=== PATIENT | female | born 1965 | race Caucasian/White ===

== ENCOUNTER 2016-11-23 23:41 | Outpatient (CLI) | payer SELFPAY | END 2016-11-23 23:42 | disposition EMS.NT | LOC: EMS 23:41 | PROVIDERS: ATTEND Surgery | DX: Z04.1 Encounter for examination and observation following transport accident (principal); V48.0XXA Car driver injured in noncollision transport accident in nontraffic accident, initial encounter; Y92.410 Unspecified street and highway as the place of occurrence of the external cause ==

== ENCOUNTER 2018-05-24 20:11 | Emergency (ER) | payer BC ==
[2018-05-24 20:51] LABS: BASOPHILS # (AUTO) 0.1 10^3/uL (0.0-0.1); BASOPHILS % (AUTO) 0.8 %; EOSINOPHILS # (AUTO) 0.2 10^3/uL (0.0-0.7); EOSINOPHILS % (AUTO) 3.6 %; HGB - HEMOGLOBIN 12.8 g/dL (12.0-16.0); LYMPHOCYTES # (AUTO) 2.4 10^3/uL (1.5-3.5); MEAN CORPUSCULAR HEMOGLOBIN 31.6 pg (27.0-31.0); MEAN CORPUSCULAR HGB CONC 33.4 g/dL (32.0-36.0); MEAN CORPUSCULAR VOLUME 94.8 fL (81.0-99.0); MEAN PLATELET VOLUME 8.2 fL (7.9-10.8); MONOCYTES # (AUTO) 0.4 10^3/uL (0.0-1.0); MONOCYTES % (AUTO) 6.7 %; NEUTROPHILS % (AUTO) 48.9 %; PLT - PLATELET COUNT 324 10^3/uL (130-450); RED BLOOD COUNT 4.04 10^6/uL (4.20-5.40); RED CELL DISTRIBUTION WIDTH 12.6 % (12.0-15.0); WHITE BLOOD COUNT 6.1 x10^3/uL (4.8-10.8)
--- NOTE | 2018-05-24 20:55 | XRAY Report ---
Reason: Chest Pain Procedure Date: 05/24/2018 Accession Number: [id number] / [id number] Procedure: XR - Chest 1 View X-Ray CPT Code: 37283 FULL RESULT: EXAM: CHEST RADIOGRAPHY EXAM DATE: 05/24/2018 08:40 PM. CLINICAL HISTORY: Left-sided chest pain for 3 days. COMPARISON: None. TECHNIQUE: 1 view. FINDINGS: Lungs/Pleura: No focal opacities evident. No pleural effusion. No pneumothorax. Mediastinum: Within exam limitations, the cardiomediastinal contour is normal. Other: None. IMPRESSION: Normal single view chest. RADIA
--- NOTE | 2018-05-24 20:57 | ED Physician Documentation ---
PD HPI URI - Stated complaint Stated Complaint: CHEST PX - Chief complaint Chief Complaint: Cardiac - History obtained from History obtained from: Patient - History of Present Illness Timing - onset: How many weeks ago (2) Timing duration: Weeks (2) Timing details: Gradual onset Pain level max: 5 Pain level now: 4 Associated symptoms: Nasal congestion, Rhinorrhea, Dry cough, Chest pain (Left- sided chest pain for the past 2 days). 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) Improves by: Rest Worsened by: Activity, Breathing, Other (Palpation) Recently seen: Not recently seen Review of Systems Constitutional: denies: Fever, Chills Throat: denies: Sore throat Cardiac: denies: Palpitations Respiratory: reports: Cough GI: denies: Vomiting, Diarrhea Skin: denies: Rash Musculoskeletal: denies: Neck pain, Back pain Neurologic: denies: Headache PD PAST MEDICAL HISTORY - Past Medical History Past Medical History: Yes Psych: Anxiety - Past Surgical History Past Surgical History: No - Present Medications Home Medications: Ambulatory Orders Medication Instructions Recorded Confirmed Benzonatate [Tessalon Perle] 100 - 200 mg PO TID PRN #30 capsule 05/24/18 Meloxicam [Mobic] 7.5 mg PO BID PRN #20 tablet 05/24/18 Sertraline HCl 1 tab PO DAILY 05/24/18 05/24/18 - Allergies Allergies/Adverse Reactions: Allergies Allergy/AdvReac Type Severity Reaction Status Date / Time No Known Drug Allergies Allergy Verified 05/24/18 20:23 - Social History Does the pt smoke?: No Smoking Status: Never smoker Does the pt drink ETOH?: No Does the pt have substance abuse?: No - Immunizations Immunizations are current?: Yes - POLST Patient has POLST: No PD ED PE NORMAL - Vitals Vital signs reviewed: Yes - General General: Alert and oriented X 3, No acute distress - HEENT HEENT: Moist mucous membranes - Neck Neck: Supple, no meningeal sign - Cardiac Cardiac: RRR, Strong equal pulses - Respiratory Respiratory: No respiratory distress, Clear bilaterally - Abdomen Abdomen: Soft, Non tender, Non distended - Derm Derm: Warm and dry - Extremities Extremities: No edema - Neuro Neuro: Alert and oriented X 3 - Free text exam Free text exam: Tender to palpation across the anterior left chest wall, reproduces her pain Results - Vitals Vitals: Vital Signs - 24 hr 05/24/18 05/24/18 05/24/18 20:15 20:55 21:40 Temperature 36.2 C L 36.5 C Heart Rate 57 L 65 63 Respiratory 18 18 19 Rate Blood Pressure 137/94 H 117/107 H 134/92 H O2 Saturation 100 99 100 Oxygen O2 Source Room air - EKG (time done) 2020 Rate: Rate (enter#) (60) Rhythm: NSR Victor: Normal Intervals: Normal NE QRS: Normal Ischemia: Normal ST segments - Labs Labs: Laboratory Tests 05/24/18 05/24/18 05/24/18 20:42 20:42 20:42 WBC 6.1 RBC 4.04 L Hgb 12.8 Hct 38.3 MCV 94.8 MCH 31.6 H MCHC 33.4 RDW 12.6 Plt Count 324 MPV 8.2 Neut # (Auto) 3.0 Lymph # (Auto) 2.4 [place] # (Auto) 0.4 Eos # (Auto) 0.2 Baso # (Auto) 0.1 Absolute Nucleated RBC 0.00 Nucleated RBC % 0.0 Sodium 138 Potassium 4.1 Chloride 101 Carbon Dioxide 29 Anion Gap 8.0 BUN 15 Creatinine 0.8 Estimated GFR (MDRD) 75 L Glucose 139 H Calcium 9.8 Total Bilirubin 0.6 AST 21 ALT 17 Alkaline Phosphatase 88 Troponin I < 0.04 Total Protein 7.4 Albumin 4.4 Globulin 3.0 Albumin/Globulin Ratio 1.5 Lipase 28 - Rads (name of study) cxr Radiology: Prelim report reviewed, EMP read contemporaneously, See rad report (normal) PD MEDICAL DECISION MAKING - ED course Complexity details: reviewed results, re-evaluated patient, considered differential (No ST elevation SC, no aortic dissection, no PE, no tension p neumothorax, no aortic aneurysm), d/w patient ED course: Patient is a 53-year-old female who presents to the emergency department with atypical chest pain. Appears related to her viral URI. No pneumonia. No hypoxia. No acute coronary syndrome. We will trial on pain medication for home and follow-up with her doctor. Patient counseled regarding signs and symptoms for which I believe and urgent re-evaluation would be necessary. Patient with good understanding of and agreement to plan and is comfortable going home at this time This document was made in part using voice recognition software. While efforts are made to proofread this document, sound alike and grammatical errors may occur. Departure - Departure Disposition: 01 Home, Self Care Clinical Impression: URI, acute Chest pain Qualifiers: Chest pain type: unspecified Qualified Code(s): R07.9 - Chest pain, unspecified Condition: Good Instructions: ED Chest Pain Costochondritis, ED URI Viral Follow-Up: your,doctor in 1 week if not better [Other] Prescriptions: Benzonatate [Tessalon Perle] 100 - 200 mg PO TID PRN #30 capsule PRN Reason: Cough Meloxicam [Mobic] 7.5 mg PO BID PRN #20 tablet PRN Reason: Pain Comments: Your x-ray does not show any evidence of pneumonia today. With your white blood cell count is also normal. Your heart tests are normal. This should improve over the next week. Return if you worsen Discharge Date/Time: 05/24/18 21:41
[2018-05-24 21:06] LABS: ALBUMIN 4.4 g/dL (3.2-5.5); ALBUMIN/GLOBULIN RATIO 1.5 (1.0-2.2); BILIRUBIN,TOTAL 0.6 mg/dL (0.2-1.0); CALCIUM 9.8 mg/dL (8.5-10.3); CREATININE 0.8 mg/dL (0.4-1.0); TOTAL PROTEIN 7.4 g/dL (6.7-8.2)
[2018-05-24] MEDS ORDERED: MELOXICAM 7.5 MG TABLET PO STA (21:34)
[2018-05-24 21:41] VITALS: BP 134/92
== END 2018-05-24 21:41 | disposition home or self-care (01) ==
LOC: ED 20:11
DX: J06.9 Acute upper respiratory infection, unspecified (principal)
CPT/HCPCS: 36415; 71045; 80053; 83690; 84484; 85025; 93005; 99283; 99284; A9270

== ENCOUNTER 2022-03-23 12:11 | Outpatient (CLI) | payer BC | END 2022-03-23 12:12 | disposition critical access hospital (66) | LOC: EMS 12:11 | DX: R45.89 Other symptoms and signs involving emotional state (principal); R45.1 Restlessness and agitation; F41.9 Anxiety disorder, unspecified | CPT/HCPCS: A0425; A0429 ==

== ENCOUNTER 2022-03-23 12:34 | Emergency (ER) | payer BC ==
--- NOTE | 2022-03-23 12:46 | ED Physician Documentation ---
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 She was taking her usual medications on the way to work which included Wellbutrin and sertraline at the normal doses. That says she might of gotten some of her 's medications and with that, she does not know exactly what her takes. When she was at work she states that work became "really fun, work is always fun but it was even more fun than normal." Then she started to have an out of body experience. She still feels odd but is improving. Review of Systems Ten Systems: 10 systems reviewed and negative Nose: reports: Reviewed and negative Throat: reports: Reviewed and negative Cardiac: reports: Reviewed and negative Respiratory: reports: Reviewed and negative PD PAST MEDICAL HISTORY - Past Medical History Psych: Anxiety - Past Surgical History Past Surgical History: No - Present Medications Home Medications: Ambulatory Orders Medication Instructions Recorded Confirmed Sertraline HCl 100 mg PO DAILY 05/24/18 03/23/22 buPROPion HCL [Bupropion HCl Sr] 100 mg PO DAILY 03/23/22 03/23/22 - Allergies Allergies/Adverse Reactions: Allergies Allergy/AdvReac Type Severity Reaction Status Date / Time No Known Drug Allergies Allergy Verified 05/24/18 20:23 - Social History Does the pt smoke?: No Smoking Status: Never smoker Does the pt drink ETOH?: No Does the pt have substance abuse?: No - Immunizations Immunizations are current?: Yes - POLST Patient has POLST: No PD ED PE NORMAL - Vitals Vital signs reviewed: Yes - General General: Alert and oriented X 3, Other (Slightly pressured speech but alert and oriented and cooperative) - HEENT HEENT: PERRL, EOMI - Neck Neck: Supple, no meningeal sign, No bony TTP - Cardiac Cardiac: RRR, No murmur - Respiratory Respiratory: No respiratory distress, Clear bilaterally - Abdomen Abdomen: Non tender - Back Back: No CVA TTP, No spinal TTP - Derm Derm: Normal color, Warm and dry - Extremities Extremities: No edema, No calf tenderness / cord - Neuro Neuro: Alert and oriented X 3, Normal speech Results - Vitals Vitals: Vital Signs - 24 hr 03/23/22 12:51 Temperature 37.0 C Heart Rate 101 H Respiratory 17 Rate Blood Pressure 151/85 H O2 Saturation 99 Oxygen O2 Source Room air - Labs Labs: Laboratory Tests 03/23/22 03/23/22 03/23/22 13:00 13:00 13:00 WBC 5.4 RBC 4.17 L Hgb 13.3 Hct 39.2 MCV 94.0 MCH 31.9 H MCHC 33.9 RDW 12.5 Plt Count 284 MPV 10.0 Neut # (Auto) 3.1 Lymph # (Auto) 1.8 [place] # (Auto) 0.5 Eos # (Auto) 0.1 Baso # (Auto) 0.0 Absolute Nucleated RBC 0.00 Nucleated RBC % 0.0 Sodium 137 Potassium 4.2 Chloride 101 Carbon Dioxide 24 Anion Gap 12.0 BUN 13 Creatinine 0.9 Estimated GFR (MDRD) 65 L Glucose 126 H Calcium 9.8 Total Bilirubin 0.6 AST 20 ALT 15 Alkaline Phosphatase 70 Total Protein 7.3 Albumin 4.7 Globulin 2.6 Albumin/Globulin Ratio 1.8 Lipase 37 TSH 1.84 Urine Color Urine Clarity Urine pH Ur Specific [place] Urine Protein Urine Glucose (UA) Urine Ketones Urine Occult Blood Urine Nitrite Urine Bilirubin Urine Urobilinogen Ur Leukocyte Esterase Ur Microscopic Review Urine Culture Comments Salicylates < 6.0 Urine Opiates Screen Ur Oxycodone Screen Urine Methadone Screen Ur Propoxyphene Screen Acetaminophen < 10 L Ur Barbiturates Screen Ur Tricyclics Screen Ur Phencyclidine Scrn Ur Amphetamine Screen U Methamphetamines Scrn U Benzodiazepines Scrn Urine Cocaine Screen U Cannabinoids Screen Ethyl Alcohol < 5.0 03/23/22 13:32 WBC RBC Hgb Hct MCV MCH MCHC RDW Plt Count MPV Neut # (Auto) Lymph # (Auto) [place] # (Auto) Eos # (Auto) Baso # (Auto) Absolute Nucleated RBC Nucleated RBC % Sodium Potassium Chloride Carbon Dioxide Anion Gap BUN Creatinine Estimated GFR (MDRD) Glucose Calcium Total Bilirubin AST ALT Alkaline Phosphatase Total Protein Albumin Globulin Albumin/Globulin Ratio Lipase TSH Urine Color YELLOW Urine Clarity CLEAR Urine pH 7.5 Ur Specific [place] 1.015 Urine Protein NEGATIVE Urine Glucose (UA) NEGATIVE Urine Ketones NEGATIVE Urine Occult Blood NEGATIVE Urine Nitrite NEGATIVE Urine Bilirubin NEGATIVE Urine Urobilinogen 0.2 (NORMAL) Ur Leukocyte Esterase NEGATIVE Ur Microscopic Review NOT INDICATED Urine Culture Comments NOT INDICATED Salicylates Urine Opiates Screen NEGATIVE Ur Oxycodone Screen NEGATIVE Urine Methadone Screen NEGATIVE Ur Propoxyphene Screen NEGATIVE Acetaminophen Ur Barbiturates Screen NEGATIVE Ur Tricyclics Screen NEGATIVE Ur Phencyclidine Scrn NEGATIVE Ur Amphetamine Screen NEGATIVE U Methamphetamines Scrn NEGATIVE U Benzodiazepines Scrn NEGATIVE Urine Cocaine Screen NEGATIVE U Cannabinoids Screen POSITIVE H Ethyl Alcohol PD MEDICAL DECISION MAKING - ED course ED course: Further history that was not forthcoming at the beginning. She had cleaned out her pantry yesterday and they were individually wrapped peanut butter cups and there that her had bought. She had 1 at school thinking it was a regular peanut butter cup but evidently it was probably THC laced. Departure - Departure Disposition: 01 Home, Self Care Clinical Impression: Delirium, Cannabis intoxication Condition: Good Record reviewed to determine appropriate education?: Yes Comments: Do not drive today, ideally you would stay with an adult. Return for new or worsening symptoms.
[2022-03-23 13:06] LABS: BASOPHILS % (AUTO) 0.7 %; EOSINOPHILS # (AUTO) 0.1 10^3/uL (0.0-0.7); EOSINOPHILS % (AUTO) 0.9 %; HCT - HEMATOCRIT 39.2 % (37.0-47.0); HGB - HEMOGLOBIN 13.3 g/dL (12.0-16.0); LYMPHOCYTES # (AUTO) 1.8 10^3/uL (1.5-3.5); LYMPHOCYTES % (AUTO) 32.5 %; MEAN CORPUSCULAR HEMOGLOBIN 31.9 pg (27.0-31.0); MEAN CORPUSCULAR HGB CONC 33.9 g/dL (32.0-36.0); MONOCYTES # (AUTO) 0.5 10^3/uL (0.0-1.0); MONOCYTES % (AUTO) 8.4 %; NEUTROPHILS # (AUTO) 3.1 10^3/uL (1.5-6.6); NEUTROPHILS % (AUTO) 57.5 %; PLT - PLATELET COUNT 284 10^3/uL (130-450); RED BLOOD COUNT 4.17 10^6/uL (4.20-5.40); RED CELL DISTRIBUTION WIDTH 12.5 % (12.0-15.0); WHITE BLOOD COUNT 5.4 x10^3/uL (4.8-10.8)
[2022-03-23 13:24] LABS: ACETAMINOPHEN < 10 ug/mL (10-30); ALBUMIN 4.7 g/dL (3.2-5.5); ALBUMIN/GLOBULIN RATIO 1.8 (1.0-2.2); ALKALINE PHOSPHATASE 70 IU/L (42-121); ALT ALANINE AMINOTRANSFERASE 15 IU/L (10-60); AST ASPARTATE AMINOTRANSFERASE 20 IU/L (10-42); BILIRUBIN,TOTAL 0.6 mg/dL (0.2-1.0); BUN - BLOOD UREA NITROGEN 13 mg/dL (6-20); CALCIUM 9.8 mg/dL (8.5-10.3); CARBON DIOXIDE - CO2 24 mmol/L (21-32); CHLORIDE 101 mmol/L (101-111); CREATININE 0.9 mg/dL (0.4-1.0); ETOH - ETHANOL < 5.0 mg/dL; GFR - MDRD 65 (>89); GLUCOSE 126 mg/dL (70-100); LIPASE 37 U/L (22-51); POTASSIUM 4.2 mmol/L (3.5-5.0); SALICYLATE < 6.0 mg/dL; SODIUM 137 mmol/L (135-145); TOTAL PROTEIN 7.3 g/dL (6.7-8.2)
[2022-03-23 13:42] LABS: MUDS CUTOFF CONCENTRATIONS CUTOFF CONC BELOW:
[2022-03-23 13:44] LABS: BILIRUBIN,URINE NEGATIVE (NEGATIVE); GLUCOSE, URINE (UA) NEGATIVE (NEGATIVE); KETONES,URINE (UA) NEGATIVE (NEGATIVE); LEUKOCYTE ESTERASE, URINE NEGATIVE (NEGATIVE); NITRITE,URINE NEGATIVE (NEGATIVE); OCCULT BLOOD,URINE NEGATIVE (NEGATIVE); PH,URINE 7.5 PH (5.0-7.5); PROTEIN,URINE NEGATIVE (NEGATIVE); UROBILINOGEN,URINE 0.2 (NORMAL) E.U./dL (NORMAL)
[2022-03-23 13:46] LABS: CLARITY,URINE CLEAR (CLEAR)
[2022-03-23 13:54] LABS: AMPHETAMINE SCREEN,URINE NEGATIVE (NEGATIVE); BARBITURATE SCREEN,UR NEGATIVE (NEGATIVE); BENZODIAZEPINES SCREEN, URINE NEGATIVE (NEGATIVE); COCAINE SCREEN URINE NEGATIVE (NEGATIVE); METHADONE SCREEN, URINE NEGATIVE (NEGATIVE); METHAMPHETAMINES SCREEN, URINE NEGATIVE (NEGATIVE); OPIATE SCREEN, URINE NEGATIVE (NEGATIVE); OXYCODONE SCREEN, URINE NEGATIVE (NEGATIVE); PROPOXYPHENE SCREEN, URINE NEGATIVE (NEGATIVE); THC CANNABINOID SCREEN, URINE POSITIVE (NEGATIVE); TRICYCLIC ANTIDEPRESSANT,URINE NEGATIVE (NEGATIVE)
[2022-03-23 14:04] VITALS: BP 169/89
== END 2022-03-23 14:08 | disposition home or self-care (01) ==
LOC: EDBD → EDUNIT# → ED 12:34
DX: F12.921 Cannabis use, unspecified with intoxication delirium (principal); F41.9 Anxiety disorder, unspecified
CPT/HCPCS: 36415; 80053; 80306; 80307; 80320; 80329; 81001; 81003; 83690; 84443; 85025; 87086; 99282; 99283